=== PATIENT | male | born 1950 | race Caucasian/White ===

== ENCOUNTER 2018-08-27 19:48 | Inpatient (IN) | payer OTHER ==
[~2018-08-27] VITALS: Ht 175.3 cm; Wt 52.6 kg
[2018-08-27 19:49] VITALS: BP 169/138
[2018-08-27 21:17] LABS: ABSOLUTE NEUTROPHILS 4.8 thou/uL (1.4-8.2); BASOPHILS 0.8 % (0.0-2.0); EOSINOPHILS 0.8 % (0.0-3.0); HEMATOCRIT 32.8 % (42.0-52.0); HEMOGLOBIN 10.8 gm/dL (14.0-18.0); LYMPHOCYTES 4.7 % (24.0-44.0); MCH 25.9 pg (26.0-34.0); MCHC 32.9 g/dL (28.0-37.0); MCV 78.7 fL (80.0-100.0); MONOCYTES 11.3 % (1.0-8.0); PLATELET COUNT 225 thou/uL (150-400); POLYS 82.4 % (36.0-66.0); RBC 4.17 mil/uL (4.50-6.00); RDW 17.1 % (10.5-14.5); WBC 5.9 thou/uL (4.0-11.0)
[2018-08-27 21:25] LABS: ANION GAP 9 mmol/L (7-16); BUN 26 mg/dL (7-18); CALCIUM 10.2 mg/dL (8.5-10.1); CHLORIDE 90 mmol/L (98-107); CO2 29 mmol/L (21-32); CREATININE 1.2 mg/dL (0.7-1.3); GLUCOSE 114 mg/dL (74-106); POTASSIUM 4.8 mmol/L (3.5-5.1); SODIUM 128 mmol/L (136-145)
[2018-08-27 21:30] LABS: URINE BILIRUBIN NEGATIVE (Negative); URINE BLOOD NEGATIVE (Negative); URINE CLARITY CLEAR; URINE COLOR YELLOW; URINE GLUCOSE-RANDOM* NEGATIVE (Negative); URINE KETONES NEGATIVE (Negative); URINE LEUKOCYTES-REFLEX NEGATIVE (Negative); URINE NITRITE-REFLEX NEGATIVE (Negative); URINE PROTEIN (DIPSTICK) NEGATIVE (Negative); URINE UROBILINOGEN 0.2 E.U./dl (0.2-1.0)
[2018-08-27 21:33] LABS: ALBUMIN 4.1 g/dL (3.4-5.0); SGOT 35 U/L (15-37); SGPT 36 U/L (30-65); TOTAL BILIRUBIN 1.6 mg/dL (<0.1-1.0); TOTAL PROTEIN 8.6 g/dL (6.4-8.2); TROPONIN-I <0.06 ng/mL (<0.06)
[2018-08-27] MEDS ORDERED: SYNTHROID75 MCG PO (22:17)
[2018-08-27] MEDS ORDERED: MULTAQ400 MG PO (22:17)
[2018-08-27] MEDS ORDERED: PRADAXA150 MG PO (22:18)
[2018-08-27] MEDS ORDERED: ASPIR 8181 MG PO (22:18)
[2018-08-27] MEDS ORDERED: LASIX 40 MG TAB40 M2 PO (22:19)
[2018-08-27] MEDS ORDERED: FLOMAX0.4 MG PO (22:19)
[2018-08-27] MEDS ORDERED: POTASSIUM20 PO (22:19)
[2018-08-27] MEDS ORDERED: PRILOSEC 20 MG20 MG PO (22:20)
[2018-08-27] MEDS ORDERED: ALDACTONE50 MG PO (22:20)
[2018-08-27 22:48] VITALS: BP 169/138
[2018-08-27 22:49] VITALS: BP 169/138
[2018-08-27 23:10] VITALS: BP 86/50
[2018-08-28] MEDS ORDERED: ACCUNEB SO1.25 MG/1 PO (00:22)
--- NOTE | 2018-08-28 01:14 | NUR ---
PATIENT ARRIVED PER CART FROM ED. IS ALERT X 4. STOOD UP TND WALKWED TO BED WITH SOME UNSTEADY GAIT. IS VERY WEAK AND FRAIL. NO SKIN ISSUES NOTED. RIGHT FA SL FLUSHED AND IV NS STARTED PER ORDERS. TELE STARTED AND IS V-PACED. HAS A PACEMAKER. COMPLAINS OF PAIN IN BILATERAL SHOULDERS AND LEGS, ALSO HAVING CRAMPS IN LEGS DUE TO NA BEING LOW. NO EDEMA NOTED. TAKES MEDS WITH APPLESAUSE. HAS SOMEW DIFFICULT IN SWOLLOWING. 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 HAD A STOMACH TUBE BUT HAS IT NO LONGER TRYING TO SWOLLOW MEDS AND FOOD NOW. BLOOD CULTURES DONE IN ED.ADMITTED DUE TO PNEUMONIA NAD HYPONATREMIA AND URINARY RETENTION. LUNGS VERY COURSE. IS PUJA SURG TELE PATIENT. CONT PLAN OF CARE.
--- NOTE | 2018-08-28 03:50 | NUR ---
REMAINS SLEEPING REFUSED TO HAVE SUPPOSITORY UNTIL HE WAKES UP TOWARDS AM. CALL AND DR ROTHMAN SAID IT WAS OKAY WITH HER. GUERA REMAINS RILEY IN COLOR. RIGHT FA IV HEALTHY. TELE- SHOWS V-PACED. REMAINS ALERT X 4.
[2018-08-28 03:55] VITALS: BP 95/64
[2018-08-28 04:48] LABS: HEMATOCRIT 32.1 % (42.0-52.0); HEMOGLOBIN 10.5 gm/dL (14.0-18.0); MCH 26.2 pg (26.0-34.0); MCHC 32.7 g/dL (28.0-37.0); MCV 80.2 fL (80.0-100.0); RBC 4.01 mil/uL (4.50-6.00); RDW 17.1 % (10.5-14.5); WBC 7.3 thou/uL (4.0-11.0)
[2018-08-28 05:09] LABS: ALBUMIN 3.8 g/dL (3.4-5.0); CALCIUM 9.5 mg/dL (8.5-10.1); CREATININE 1.2 mg/dL (0.7-1.3); TOTAL BILIRUBIN 1.4 mg/dL (<0.1-1.0); TOTAL PROTEIN 7.8 g/dL (6.4-8.2)
[2018-08-28 05:10] LABS: POTASSIUM 5.4 mmol/L (3.5-5.1)
--- NOTE | 2018-08-28 06:24 | NUR ---
SUPPOSITORY GIVEN PER ORDERS NO RESULTS YET.
[2018-08-28 08:05] VITALS: BP 91/62
--- NOTE | 2018-08-28 11:54 | EKG ---
[address] [place] [address] ELECTROCARDIOGRAM REPORT Name: DELLA HARMAN Room #: 357-P ADM IN M.R.#: [id number] ������������������ Admission: 08/27/18 ������������������ Attend Phys: Samuel Ross MD Discharge: ������������������ Date of : 50 Report #: [id number] ����������������������������������������������������������������� [id number] THIS REPORT FOR: //name// 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[id number] Requested By: Denise De Anda Order Number: [id number] MD: Gerber Carney Measurements Intervals [place] Rate: 80 P: 125 VT: 41 QRS: 147 QRSD: 154 T: -14 QT: 457 QTc: 528 Interpretive Statements Ventricular-paced complexes No further analysis attempted due to paced rhythm No previous ECG available for comparison Electronically Signed On 08-28-2018 11:54:17 CDT by Gerber Carney [email or web address] ��������������������������������������������� <ELECTRONICALLY SIGNED> ���������������������������������������� By: Gerber Carney MD, [facility] ��������������������������������������������� 08/28/18 1154 32 32 Gerber Carney MD, FACC /EPI
[2018-08-28 16:04] VITALS: BP 81/51
--- NOTE | 2018-08-28 19:28 | NUR ---
DID HAVE A BOWEL MOVEMENT THIS AM. HE SLEPT MOST OF THE DAY. RESPIRAITOS NON LABORED. CONT ON OXYGENT AT 4LPM. DID COMPLAIN OF PAIN AND EACH TIME PRN MED WAS EFFECTIVE. WILL CONT WITH PLAN OF CARE.
[2018-08-28 19:42] VITALS: BP 89/56
--- NOTE | 2018-08-29 02:45 | NUR ---
RESTING QUIETLY TONIGHT. CALLS APPROP, FOR ASSIST. DENIES PAIN. PROGRESSING TOWARD DISCHARGE GOALS.
[2018-08-29 03:21] VITALS: BP 95/51
[2018-08-29 08:01] VITALS: BP 96/59
--- NOTE | 2018-08-29 12:26 | NUR ---
ASSESSMENT: CM REVIEWED CHART AND MET WITH PATIENT AT THE BEDSIDE. PT IS ALERT AND ORIENTED X4. PT WAS ADMITTED WITH URINARY RETENTION/CONSTIPATION. PT REPORTS HE LIVES AT HOME WITH HIS IN A HOUSE. PT HAS HX OF ESOPHAGEAL CANCER S/P ESOPHAGOGRASTRECTOMY AND HAS HAD CHEMO AND RADIATION. PT REPORTS HAVING TWO SHORT FLIGHTS OF STEPS TO ENTER THE HOME WITH HANDRAILS ON EACH SIDE. PT REPORTS ONCE INSIDE ABOUT 8 STEPS WITH HANDRAILS TO HIS BEDROOM. PT REPORTS BEING FULLY INDEPENDENT WITH ADLS AND AMBULATION. PT REPORTS HE DOES HAVE A CANE AT HOME BUT DOES NOT USE IT. PT IS ON OXYGEN AT HOME AND REPORTS HIS BASELINE IS ABOUT 3-4 LITERS AND IS SUPPLIED [facility]ROUGH [facility]. CM DISCUSSED ROLE. PT STATES HE HAS NOT HAD HH IN THE PAST AND DOES NOT FEEL HE NEEDS IT. PT ANTICIPATES TO DISCHARGE HOME WITH NO NEEDS ONCE MEDICALLY STABLE.
--- NOTE | 2018-08-29 13:10 | 2DMMODE ---
[facility] [address] [place] [address] 2 D/M-MODE ECHOCARDIOGRAM Name: KIMANIDELLA Solis Room #: 357-P ADM IN M.R.#: [id number] ������������� Admission: 08/27/18 ������������� Attend Phys: Yuval Finn Discharge: ��� ������������� ��� Date of : 50 Date of Service: 08/29/18 1310 �� Report #: [id number] �������� ��������������������������������������������[id number] THIS REPORT FOR: //name// APPROVED REPORT Study performed: 08/29/2018 11:44:57 EXAM: Limited 2D, Doppler, and color-flow Echocardiogram Patient Location: Bedside Room #: 357 Status: routine BSA: 1.64 HR: 80 bpm BP: 96/59 mmHg Rhythm: NSR Other Information Study Quality: Good Indications Congestive Heart Failure COPD Pacemaker Limited echo to assess EF. Complete echo 04/11/2018 2D Dimensions IVSd: 12.07 (7-11mm) LVOT Diam: 22.96 (18-24mm) LVDd: 29.14 mm PWd: 10.65 (7-11mm) Ascending Ao: 36.29 (22-36mm) LVDs: 21.97 (25-40mm) Aortic Root: 37.29 mm IVC: 28.00 mm Tricuspid Valve TR Peak Zaheer.: 2.32 m/s RAP Estimate: 15.00 mmHg TR Peak Gr.: 21.47 mmHg PA Pressure: 37.00 mmHg Left Ventricle The left ventricle is normal size. Mild concentric left ventricular hypertrophy. Left ventricular systolic function is at the lower limits of normal. Septal flattening possibly related to RV pressure overload. Discordant septal motion possibly related to RV pacing LVEF is 45-50%. Aortic Valve Possible small aortic valve vegetation, unchanged from previous echo [facility] [address] [place] [address] 2 D/M-MODE ECHOCARDIOGRAM Name: DELLA HARMAN Room #: 357-P ADM IN .R.#: [id number] ������������� Admission: 08/27/18 ������������� Attend Phys: Yuval Finn Discharge: ��� ������������� ��� Date of : 50 Date of Service: 08/29/18 1310 �� Report #: [id number] �������� ��������������������������������������������[id number] on 04/11/2018. Mild aortic regurgitation. There is no aortic valvular stenosis. Mitral Valve Mild mitral annular calcification. Mild mitral regurgitation. Tricuspid Valve The tricuspid valve is normal in structure. Moderate tricuspid regurgitation. PAP is estimated at 37 mmHg. Pulmonic Valve The pulmonary valve is normal in structure. Trace pulmonic regurgitation. Great Vessels IVC is dilated and collapses <50% with inspiration. Pericardium There is no pericardial effusion. <Conclusion> Limited echocardiogram Left ventricular systolic function is at the lower limits of normal. Septal flattening possibly related to RV pressure overload. Discordant septal motion possibly related to RV pacing LVEF is 45-50%. Possible small aortic valve vegetation, unchanged from previous echo on 04/11/2018. Mild aortic regurgitation. Mild mitral annular calcification. Mild mitral regurgitation. There is no pericardial effusion. Similar to a study dated March 2018 ��������������������������������������������� <ELECTRONICALLY SIGNED> ���������������������������������������� By: Gerber Carney MD, FACC ��������������������������������������������� 08/29/181309 09 09 Gerber Carney MD, FAC /INF
[2018-08-29 15:46] VITALS: BP 105/60
[2018-08-29 16:47] LABS: CALCIUM 9.8 mg/dL (8.5-10.1); CREATININE 1.2 mg/dL (0.7-1.3); POTASSIUM 5.6 mmol/L (3.5-5.1)
[2018-08-29 19:30] VITALS: BP 91/61
--- NOTE | 2018-08-29 19:56 | NUR ---
NOTED LOW POTASSIUM. SEE NEW ORDERS. DID REQUEST PAIN MED DARBY. WAS EFFECTIVE. EATING MUCH BETTER TODAY. DRANK ALL ENSURE SUPPLIED.. PLEASANT.
[2018-08-30 03:50] VITALS: BP 88/62
--- NOTE | 2018-08-30 04:52 | NUR ---
FOLLOWING POC WITH [facility]. PT STATES HE HAS CHRONIC PAIN AND GAVE PRN PAIN MEDICATION X1. URINE OUTPUT HAS BEEN VERY GOOD WITH 1200ML. 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 ALSO STATES HE WANTS DR. Sav MULLER BACK ON HIS CONSULTS. I SAID I WILL LOOK INTO THIS MATTER AND PASS THIS INFORMATION TO ONCOMING NURSE. HOURLY ROUNDING AND OXYGEN STILL AT 4L.
[2018-08-30 05:53] LABS: HEMATOCRIT 30.1 % (42.0-52.0); HEMOGLOBIN 9.8 gm/dL (14.0-18.0); MCH 25.5 pg (26.0-34.0); MCHC 32.4 g/dL (28.0-37.0); MCV 78.7 fL (80.0-100.0); RBC 3.83 mil/uL (4.50-6.00); RDW 17.4 % (10.5-14.5); WBC 9.7 thou/uL (4.0-11.0)
[2018-08-30 06:10] LABS: CREATININE 1.1 mg/dL (0.7-1.3); POTASSIUM 4.8 mmol/L (3.5-5.1)
[2018-08-30 07:49] VITALS: BP 105/72
[2018-08-30] MEDS ORDERED: CEFDINIR300 MG PO (13:54)
--- NOTE | 2018-08-30 15:21 | NUR ---
PATIENT WILL BE DISCHARGED HOME. LYNNE WAS TAKEN OUT THIS AFTERNOON AND HE DID URINATE TWICE. HE DENIES PAIN ON MICTURATION. HE IS ALERT ORIENTED X4. PLEASANT WITH CARE. WILL CONT WITH PLAN OF CARE.
[2018-08-30 15:46] VITALS: BP 105/72
== END 2018-08-30 16:01 | disposition home or self-care (01) | DRG 193 ==
LOC: ER 19:48 → EROBS 21:53 → 3W 21:53 → ENTRNSPT 08-30 15:54 → 3W 08-30 16:01
PROVIDERS: Hospitalist; Nurse Practitioner Family; ADMIT Internal Medicine
DX: J18.9 Pneumonia, unspecified organism (principal); I50.21 Acute systolic (congestive) heart failure; E43 Unspecified severe protein-calorie malnutrition; E87.1 Hypo-osmolality and hyponatremia; Z68.1 Body mass index [BMI] 19.9 or less, adult; J44.0 Chronic obstructive pulmonary disease with (acute) lower respiratory infection; I48.92 Unspecified atrial flutter; R62.7 Adult failure to thrive; R33.9 Retention of urine, unspecified; I27.20 Pulmonary hypertension, unspecified; I45.9 Conduction disorder, unspecified; E03.9 Hypothyroidism, unspecified; E87.5 Hyperkalemia; I48.91 Unspecified atrial fibrillation; K21.9 Gastro-esophageal reflux disease without esophagitis; Z95.810 Presence of automatic (implantable) cardiac defibrillator; Z85.01 Personal history of malignant neoplasm of esophagus; Z90.49 Acquired absence of other specified parts of digestive tract; Z87.891 Personal history of nicotine dependence; Z92.21 Personal history of antineoplastic chemotherapy; Z92.3 Personal history of irradiation; Z99.81 Dependence on supplemental oxygen; Z79.82 Long term (current) use of aspirin; Z79.899 Other long term (current) drug therapy
CPT/HCPCS: 10879